=== PATIENT | female | born 1945 | race Caucasian/White ===

== ENCOUNTER 2017-12-26 14:14 | Inpatient (IN) | payer OTHER, MEDICARE ==
[~2017-12-26] VITALS: Ht 152.4 cm; Wt 89.9 kg
[~2017-12-26 14:14] MED LIST: AMLO5TAB96 PO; ASPI81 PO; CIPR500T2 PO; DICY10 PO; FISH300C2 PO; METR-1 PO; PROT40TA PO; TAB-TAB PO; [UNRECOGNIZED DRUG - OTHER] PO
[2017-12-26 14:20] VITALS: BP 129/65; PULSE 87; RESP 20; TEMP 98.7; O2SAT 95
[2017-12-26] MEDS ORDERED: KETOROLAC TROMETHAMINE 30 MG/ML (IVP) VIAL IV PUSH ONE (14:45)
[2017-12-26 15:20] LABS: AUTOMATED NEUTROPHIL # 7.4 TH/MM3 (1.8-7.7); BASOPHIL % 0.4 % (0.0-2.0); EOSINOPHIL % 0.1 % (0.0-4.0); HEMATOCRIT 33.7 % (35.0-46.0); LYMPH % 11.2 % (9.0-44.0); LYMPHOCYTE # 1.1 TH/MM3 (1.0-4.8); MEAN CELL VOLUME 83.7 FL (80.0-100.0); MEAN CORPUSCULAR HEMOGLOBIN 27.3 PG (27.0-34.0); MEAN CORPUSCULAR HGB CONC 32.6 % (32.0-36.0); MEAN PLATELET VOLUME 7.3 FL (7.0-11.0); MONO % 10.5 % (0.0-8.0); NEUT % 77.8 % (16.0-70.0); PLATELET COUNT 404 TH/MM3 (150-450); RED BLOOD COUNT 4.03 MIL/MM3 (4.00-5.30); RED CELL DISTRIBUTION WIDTH 18.3 % (11.6-17.2); WHITE BLOOD COUNT 9.5 TH/MM3 (4.0-11.0)
[2017-12-26 15:49] LABS: ALBUMIN 3.6 GM/DL (3.4-5.0); ALKALINE PHOSPHATASE 73 U/L (45-117); ALT (GPT) 14 U/L (10-53); AST (GOT) 16 U/L (15-37); BICARBONATE 26.5 MEQ/L (21.0-32.0); BLOOD UREA NITROGEN 11 MG/DL (7-18); CALCIUM 8.7 MG/DL (8.5-10.1); CHLORIDE 87 MEQ/L (98-107); CREATININE 0.49 MG/DL (0.50-1.00); GLOMERULAR FILTRATION RATE 124 ML/MIN (>89); GLUCOSE,RANDOM 89 MG/DL (74-106); TOTAL BILIRUBIN ADULT 0.6 MG/DL (0.2-1.0); TOTAL PROTEIN 7.6 GM/DL (6.4-8.2)
[2017-12-26 15:52] LABS: SODIUM (NA) 123 MEQ/L (136-145)
--- NOTE | 2017-12-26 16:02 | RADRPT ---
EXAM DATE/TIME: 12/26/2017 15:07 [facility] COMPARISON: No previous studies available for comparison. INDICATIONS : Chest pain. MEDICAL HISTORY : Chronic obstructive pulmonary disease. Hypertension SURGICAL HISTORY : Hysterectomy. Hernia repair. ENCOUNTER: Initial ACUITY: 1 week PAIN SCORE: 10/10 LOCATION: Bilateral chest FINDINGS: Cardiac silhouette is enlarged. Mild interstitial prominence. No significant focal pleural or parench ymal abnormality. Osseous structures are intact. CONCLUSION: 1. Cardiomegaly with slight positive fluid balance. Lyle Davis MD on December 26, 2017 at 15:59 Board Certified Radiologist. This report was verified electronically.
--- NOTE | 2017-12-26 16:14 | RADRPT ---
EXAM DATE/TIME: 12/26/2017 15:16 [facility] COMPARISON: No previous studies available for comparison. INDICATIONS : Lumbar pain. MEDICAL HISTORY : Chronic obstructive pulmonary disease. Hypertension SURGICAL HISTORY : Hysterectomy. Hernia repair. ENCOUNTER: Initial ACUITY: 1 week PAIN SCORE: 10/10 LOCATION: lumbar FINDINGS: 3 views of the lumbar spine. There is mild levoscoliosis of the lumbar spine centered at L3-4. Mild l oss of vertebral body height at L5. Otherwise, vertebral body heights are intact. Degenerative spondy losis of the lower lumbar spine most prominently at L4-5 and L5-S1 with osteophyte formation and endp late sclerosis. Multilevel facet arthropathy in the lower lumbar spine. Dense atherosclerotic aspirat ions of the abdominal aorta. CONCLUSION: 1. Mild compression deformity of the L5 inferior endplate of unknown chronicity given lack of prior e xams. If patient has significant pain on palpation of the L5 spinous process, consider MRI examinatio n to evaluate for bone marrow edema. 2. Degenerative spondylosis of the lower lumbar spine. Lyle Davis MD on December 26, 2017 at 16:01 Board Certified Radiologist. This report was verified electronically.
--- NOTE | 2017-12-26 16:39 | PD ---
HPI Chief Complaint: Pain: Acute or Chronic Time Seen by Provider: 14:21 Travel History International Travel<30 days: No Contact w/Intl Traveler<30days: No Traveled to known affect area: No History of Present Illness HPI 72-year-old woman who presents to the emergency department complaining of low back pain ongoing for the past 6 or 7 days. She also states she not had a bowel movement for 8 days. Pain is gotten progressively more severe and so she came to the emergency department. She also felt like she is having a COPD exacerbation and she started prednisone and Cipro couple days ago. She has had continuing URI symptoms. States she has had T-spine compression fractures in the past History Past Medical History Narrative Medical COPD HTN Social History Alcohol Use: Yes (2-3 gin per day) Tobacco Use: No (QUIT 11 MTHS AGO TODAY) Allergies-Medications (Allergen,Severity, Reaction): Coded Allergies: acetaminophen (Unverified Allergy, Severe, HEADACHE AND INSOMNIA, 06/23/17) codeine (Unverified Allergy, Severe, HEADACHE AND INSOMNIA, 06/23/17) hydrocodone (Unverified Allergy, Severe, HEADACHE AND INSOMNIA, 06/23/17) Reported Meds & Prescriptions Reported Meds & Active Scripts Active Protonix (Pantoprazole Sodium) 40 Mg Tabdr 40 Mg PO DAILY Flagyl (Metronidazole) 500 Mg Tab 500 Mg PO TID Cipro (Ciprofloxacin) 500 Mg Tab 500 Mg PO BID Bentyl (Dicyclomine HCl) 10 Mg Cap 10 Mg PO Q6HPRN Reported Aspirin 81 Mg Tab 81 Mg PO HS Multivitamin (Multivitamins) 1 Tab Tab 1 Tab PO DAILY Fish Oil 300 Mg Cap 0 PO BID [Flac Seed Oil] 0 PO BID Norvasc (Amlodipine Besylate) 5 Mg Tab 5 Mg PO BID Review of Systems Except as stated in HPI: all other systems reviewed are Neg Physical Exam Narrative GENERAL: 71-year-old woman, pain with any movement of the back, SKIN: Focused skin assessment warm/dry. HEAD: Atraumatic. Normocephalic. EYES: Pupils equal and round. No scleral icterus. No injection or drainage. ENT: No nasal bleeding or discharge. Mucous membranes pink and moist. NECK: Trachea midline. No JVD. CARDIOVASCULAR: Regular rate and rhythm. No murmur appreciated. RESPIRATORY: No respiratory distress. Coarse breath sounds. GASTROINTESTINAL: Abdomen soft, non-tender, nondistended. Hepatic and splenic margins not palpable. MUSCULOSKELETAL: No obvious deformities. No clubbing. No cyanosis. No edema. NEUROLOGICAL: Awake and alert. No obvious cranial nerve deficits. Motor grossly within normal limits. Normal speech. PSYCHIATRIC: Appropriate mood and affect; insight and judgment normal. Data Data Last Documented VS Vital Signs Date Time Temp Pulse Resp B/P (MAP) Pulse Ox O2 Delivery O2 Flow Rate FiO2 12/26/17 14:20 98.7 87 20 129/65 (86) 95 Orders Orders Chest, Pa & Lat (12/26/17 ) Spine, Lumbar - Ltd (Ap & Lat) (12/26/17 ) Complete Blood Count With Diff (12/26/17 14:35) Comprehensive Metabolic Panel (12/26/17 14:35) Iv Access Insert/Monitor (12/26/17 14:35) Ketorolac Inj (Toradol Inj) (12/26/17 14:45) Sodium Chlor 0.9% 1000 Ml Inj (Ns 1000 M (12/26/17 16:45) Albuterol-Ipratropium Neb (Duoneb Neb) (12/26/17 16:45) Morphine Inj (Morphine Inj) (12/26/17 16:45) Vital Signs (Adult) Q4H (12/26/17 16:52) Activity Bed Rest (12/26/17 16:52) Diet Heart Healthy (12/26/17 Dinner) Basic Metabolic Panel (Bmp) (12/27/17 06:00) Complete Blood Count With Diff (12/27/17 06:00) Scd Bilateral/Knee High JULY.QSHIFT (12/26/17 16:52) Sodium Chlor 0.9% 1000 Ml Inj (Ns 1000 M (12/26/17 17:00) Consult Neurosurgery (12/26/17 ) Basic Metabolic Panel (Bmp) (12/27/17 02:00) Admit To Inpatient (12/26/17 ) Admit Order (Ed Use Only) (12/26/17 ) Labs Laboratory Tests Test 12/26/17 14:45 White Blood Count 9.5 TH/MM3 Red Blood Count 4.03 MIL/MM3 Hemoglobin 11.0 GM/DL Hematocrit 33.7 % Mean Corpuscular Volume 83.7 FL Mean Corpuscular Hemoglobin 27.3 PG Mean Corpuscular Hemoglobin Concent 32.6 % Red Cell Distribution Width 18.3 % Platelet Count 404 TH/MM3 Mean Platelet Volume 7.3 FL Neutrophils (%) (Auto) 77.8 % Lymphocytes (%) (Auto) 11.2 % Monocytes (%) (Auto) 10.5 % Eosinophils (%) (Auto) 0.1 % Basophils (%) (Auto) 0.4 % Neutrophils # (Auto) 7.4 TH/MM3 Lymphocytes # (Auto) 1.1 TH/MM3 Monocytes # (Auto) 1.0 TH/MM3 Eosinophils # (Auto) 0.0 TH/MM3 Basophils # (Auto) 0.0 TH/MM3 CBC Comment DIFF FINAL Differential Comment Blood Urea Nitrogen 11 MG/DL Creatinine 0.49 MG/DL Random Glucose 89 MG/DL Total Protein 7.6 GM/DL Albumin 3.6 GM/DL Calcium Level 8.7 MG/DL Alkaline Phosphatase 73 U/L Aspartate Amino Transf (AST/SGOT) 16 U/L Alanine Aminotransferase (ALT/SGPT) 14 U/L Total Bilirubin 0.6 MG/DL Sodium Level 123 MEQ/L Potassium Level 3.7 MEQ/L Chloride Level 87 MEQ/L Carbon Dioxide Level 26.5 MEQ/L Anion Gap 10 MEQ/L Estimat Glomerular Filtration Rate 124 ML/MIN [facility] Medical Decision Making Medical Screen Exam Complete: Yes Emergency Medical Condition: Yes Interpretation(s) LABS: CBC remarkable for mild anemia. CMP remarkable for sodium 123 Chest x-ray: Cardiac silhouette is enlarged. Mild interstitial prominence. L-spine x-ray: Mild compression deformity of the L5 inferior endplate of unknown chronicity. Differential Diagnosis Spine fracture, compression fracture, UTI, probably, other Narrative Course Medical decision making INITIAL pleasant 72 odometer presents to the emergency department worsening low back pain. Appears to have an L1 compression fracture, fairly minor. Also found to have severe hyponatremia. Unclear if this is related to her fall. She has had trouble with her mobility and getting around since the back pain is started this may be related. She does not take any diuretics. Diagnosis Primary Impression: Hyponatremia Additional Impression: Compression fracture of lumbar vertebra Admitting Information Admitting Physician Requests: Admit Pete Martínez MD Dec 26, 2017 16:39
[2017-12-26] MEDS ORDERED: SODIUM CHLOR 0.9% 1000 ML INJ 1,000 ML IV ONE (16:45)
[2017-12-26] MEDS ORDERED: MORPHINE SULFATE 4 MG/ML INJ IV PUSH ONE (16:45)
[2017-12-26] MEDS ORDERED: RESP: ALBUTEROL 2.5 MG/IPRATROPIUM 0.5 MG NEB (SCH) NEB ONE (16:45)
[2017-12-26] MEDS: SODIUM CHLOR 0.9% 1000 ML INJ 1,000 ML IV SCH (17:35)
[2017-12-26 18:23] VITALS: BP 144/65; PULSE 78; O2SAT 95
--- NOTE | 2017-12-26 18:29 | HHI.NSPN ---
History Chief Complaint: back pain Interval History History of upper lumbar pain for 1 week. No radiation. History of T spine fractures Exam Results Vital Signs Date Time Temp Pulse Resp B/P (MAP) Pulse Ox O2 Delivery O2 Flow Rate FiO2 12/26/17 18:23 78 144/65 (91) 95 Nasal Cannula 2.00 12/26/17 14:20 98.7 20 Medical Decision Making Impression and Plan Imp: Upper lumbar pain L5 fracture appears old and does not correlate with pain Rec: Consider CT of T &LS spine. May need MRI Review completed consult Hreve Encinas MD Dec 26, 2017 18:28
[2017-12-26] MEDS ORDERED: SYMB80AE INH (18:33)
[2017-12-26] MEDS ORDERED: AMLO5TAB2 PO (18:33)
--- NOTE | 2017-12-26 18:55 | HHI.HP ---
[facility] Jose Arellano MD (Paul) Admission Diagnosis Hyponatremia, L-spine compression fracture Diagnoses: (1) Lumbar compression fracture Diagnosis: Principal (2) Intractable pain Diagnosis: Principal (3) COPD (chronic obstructive pulmonary disease) Diagnosis: Principal (4) Constipation Diagnosis: Principal (5) Hyponatremia Diagnosis: Principal (6) Alcohol use Diagnosis: Principal (7) Tobacco abuse Diagnosis: Principal Travel History International Travel<30 Days: No Contact w/Intl Traveler <30 Da: No Traveled to Known Affected Are: No History of Present Illness This is a 72-year-old female with a PMH of HTN, COPD and h/o Tobacco Abuse who presented to the ER w/ various complaints including back pain, SOB/wheezing and constipation. States back pain has been ongoing for approx 1wk, denies injury/ trauma. Reports h/o T-Spine Fx several years ago after lifting a patient while working as a [employer]. Has been taking Ibuprofen at home with no relief. Reports pain is severe, constant, sharp, 10/10, non-radiating. SOB started 4 days ago, thought she was having a COPD exacerbation so she started taking Prednisone and Cipro that she had at home, has been on treatment since (2 days ago). SOB is moderate, associated w/ wheezing, no cough. Denies fever, chills. Also reports constipation x8 days. Has taken multiple over the counter medications w / minimal relief, today used a suppository and had small BM. Denies abdominal pain, nausea, vomiting or diarrhea. On arrival, BP 144/65, HR 78, O2 sat 95% on 2L. CBC essentially unremarkable, except for hemoglobin 11, previously 16.3 on 02/09/13. Na 123. K+ normal. CXR with cardiomegaly with slight positive fluid balance. Lumbar Spine x-ray with mild compression deformity of L5 of unknown chronicity. Dr. Encinas consulted by ER physician, recommendation for CT T/L-Spine. Review of Systems Except as stated in HPI: all other systems reviewed are Neg ROS: 14 point review of systems otherwise negative. Past Family Social History Past Medical History PMH: HTN, COPD and h/o Tobacco Abuse Past Surgical History PAST SURGICAL HISTORY: Hiatal Hernia, Hysterectomy, Sinus Surgery Allergies: Coded Allergies: acetaminophen (Unverified Allergy, Severe, HEADACHE AND INSOMNIA, 06/23/17) codeine (Unverified Allergy, Severe, HEADACHE AND INSOMNIA, 06/23/17) hydrocodone (Unverified Allergy, Severe, HEADACHE AND INSOMNIA, 06/23/17) Family History PAST FAMILY HISTORY: Reviewed, positive for CAD. Social History PAST SOCIAL HISTORY: Drinks 2-3 gins per day. H/o tobacco abuse, states she quit almost 1yr ago. Denies drugs. Physical Exam Vital Signs Vital Signs Date Time Temp Pulse Resp B/P (MAP) Pulse Ox O2 Delivery O2 Flow Rate FiO2 12/26/17 18:23 78 144/65 (91) 95 Nasal Cannula 2.00 12/26/17 14:20 98.7 87 20 129/65 (86) 95 Physical Exam PE: GENERAL: Elderly white female in moderate distress secondary to pain. Room smells strongly of tobacco. HEENT: PERRLA, EOMI. No scleral icterus or conjunctival pallor. No lid lag or facial droop. CARDIOVASCULAR: Regular rate and rhythm. No obvious murmurs to auscultation. No chest tenderness to palpation. RESPIRATORY: No obvious rhonchi. Occasional wheezing, intermittent cough. Clear to auscultation. Breath sounds equal bilaterally, but difficult to auscultate due to back pain. GASTROINTESTINAL: Abdomen distended, soft, no tenderness. BS normal. MUSCULOSKELETAL: Extremities without clubbing, cyanosis, or edema. No obvious deformities. T/L-spine tenderness to palpation. NEUROLOGICAL: Awake, alert and oriented x4. No focal neurologic deficits. Moving both upper and lower extremities spontaneously. Laboratory Laboratory Tests Test 12/26/17 14:45 White Blood Count 9.5 Red Blood Count 4.03 Hemoglobin 11.0 Hematocrit 33.7 Mean Corpuscular Volume 83.7 Mean Corpuscular Hemoglobin 27.3 Mean Corpuscular Hemoglobin Concent 32.6 Red Cell Distribution Width 18.3 Platelet Count 404 Mean Platelet Volume 7.3 Neutrophils (%) (Auto) 77.8 Lymphocytes (%) (Auto) 11.2 Monocytes (%) (Auto) 10.5 Eosinophils (%) (Auto) 0.1 Basophils (%) (Auto) 0.4 Neutrophils # (Auto) 7.4 Lymphocytes # (Auto) 1.1 Monocytes # (Auto) 1.0 Eosinophils # (Auto) 0.0 Basophils # (Auto) 0.0 CBC Comment DIFF FINAL Differential Comment Blood Urea Nitrogen 11 Creatinine 0.49 Random Glucose 89 Total Protein 7.6 Albumin 3.6 Calcium Level 8.7 Alkaline Phosphatase 73 Aspartate Amino Transf (AST/SGOT) 16 Alanine Aminotransferase (ALT/SGPT) 14 Total Bilirubin 0.6 Sodium Level 123 Potassium Level 3.7 Chloride Level 87 Carbon Dioxide Level 26.5 Anion Gap 10 Estimat Glomerular Filtration Rate 124 Result Diagram: 12/26/17 1445 12/26/17 1445 Caprini VTE Risk Assessment Caprini VTE Risk Assessment: No/Low Risk (score <= 1) Caprini Risk Assessment Model Point Value = 1 Point Value = 2 Point Value = 3 Point Value = 5 Age 41-60 Minor surgery BMI > 25 kg/m2 Swollen legs Varicose veins or History of unexplained or recurrent spontaneous Oral contraceptives or hormone replacement Sepsis (< 1 month) Serious lung disease, including pneumonia (< 1 month) Abnormal pulmonary function Acute myocardial infarction Congestive heart failure (< 1 month) History of inflammatory bowel disease Medical patient at bed rest Age 61-74 Arthroscopic surgery Major open surgery (> 45 min) Laparoscopic surgery (> 45 min) Malignancy Confined to bed (> 72 hours) Immobilizing plaster cast Central venous access Age >= 75 History of VTE Family history of VTE Factor V Leiden Prothrombin [id number] Lupus anticoagulant Anticardiolipin antibodies Elevated serum homocysteine Heparin-induced thrombocytopenia Other congenital or acquired thrombophilia Stroke (< 1 month) Elective arthroplasty Hip, pelvis, or leg fracture Acute spinal cord injury (< 1 month) Prophylaxis Regimen Total Risk Factor Score Risk Level Prophylaxis Regimen 0-1 Low Early ambulation 2 Moderate Order ONE of the following: *Sequential Compression Device (SCD) *Heparin 5000 units SQ BID 3-4 Higher Order ONE of the following medications: *Heparin 5000 units SQ TID *Enoxaparin/Lovenox 40 mg SQ daily (WT < 150 kg, CrCl > 30 mL/min) *Enoxaparin/Lovenox 30 mg SQ daily (WT < 150 kg, CrCl > 10-29 mL/min) *Enoxaparin/Lovenox 30 mg SQ BID (WT < 150 kg, CrCl > 30 mL/min) AND/OR *Sequential Compression Device (SCD) 5 or more Highest Order ONE of the following medications: *Heparin 5000 units SQ TID (Preferred with Epidurals) *Enoxaparin/Lovenox 40 mg SQ daily (WT < 150 kg, CrCl > 30 mL/min) *Enoxaparin/Lovenox 30 mg SQ daily (WT < 150 kg, CrCl > 10-29 mL/min) *Enoxaparin/Lovenox 30 mg SQ BID (WT < 150 kg, CrCl > 30 mL/min) AND *Sequential Compression Device (SCD) Assessment and Plan Problem List: (1) Intractable pain ICD Code: R52 - Pain, unspecified (2) Lumbar compression fracture ICD Code: S32.000A - Wedge compression fracture of unspecified lumbar vertebra , initial encounter for closed fracture (3) COPD (chronic obstructive pulmonary disease) ICD Code: J44.9 - Chronic obstructive pulmonary disease, unspecified (4) Constipation ICD Code: K59.00 - Constipation, unspecified (5) Hyponatremia ICD Code: E87.1 - Hypo-osmolality and hyponatremia Status: Acute (6) Alcohol use ICD Code: Z78.9 - Other specified health status (7) Tobacco abuse ICD Code: Z72.0 - Tobacco use Assessment and Plan A/P: 1. Intractable Back Pain: c/o acute onset back pain, no injury/trauma, reports multiple allergies to Tylenol, Codeine and Hydrocodone. Received Morphine and Toradol in ER w/ some relief. Continue Morphine prn, add Valium prn for muscle spasm. Antiemetics as needed. 2. Lumbar CxFx: c/o acute, severe back pain. H/o Thoracic CxFx years ago from previous trauma. L-Spine X-ray w/ mild compression deformity of L5 inferior endplate of unknown chronicity, images reviewed by me. Dr. Encinas consulted by ER physician, compression fracture does not correlate with area of pain, however recommendation for further imaging. Will obtain CT T/L-Spine. PT for eval/tx. Analgesics/antiemetics as above. 3. COPD: Chronic Respiratory Failure, w/ Acute Exacerbation. Moderate. + wheezing/SOB on exam. Has been on Prednisone/Cipro x2 days. CXR w/ no acute infiltrate, images reviewed by me. Solu-Medrol, DuoNeb, Symbicort, Mucinex. 4. Constipation: no BM x1 wk, has been using OTC medications/suppository w/ minimal relief, small BM today. No nausea/vomiting or diarrhea, no abdominal pain. Check Abd X-ray to eval for possible obstruction. Start Constipation Protocol 5. Hyponatremia: Na 123, IVF for hydration, check U/a to eval for possible UTI. Repeat labs for trend. 6. Alcohol Use: Drinks 2-3 gins/day, start CIWA protocol for possible withdrawal symptoms, Seizure Precautions, MVT/Thiamine/Folate replacement. 7. Tobacco Abuse: h/o tobacco, reports quit in the past. NicoDerm prn if needed. 8. DVT Prophylaxis: SCD/Teds. 9. Social work for d/c planning as needed. 10. Case discussed w/ ER physician at length, labs/records/imaging/consult notes evaluated by me. Physician Certification 2 Midnight Certification Type: Admission for Inpatient Services Order for Inpatient Services The services are ordered in accordance with Medicare regulations or non- Medicare payer requirements, as applicable. In the case of services not specified as inpatient-only, they are appropriately provided as inpatient services in accordance with the 2-midnight benchmark. Estimated LOS (days): 2 days is the estimated time the patient will need to remain in the hospital, assuming treatment plan goals are met and no additional complications. Post-Hospital Plan: Not yet determined Edwige Moreno MD Dec 26, 2017 18:55
[2017-12-26] MEDS ORDERED: MORPHINE SULFATE 2 MG/ML INJ IV PUSH PRN ×2 (19:00)
[2017-12-26] MEDS ORDERED: BISACODYL 10 MG SUPP RECTAL PRN (19:00)
[2017-12-26] MEDS: DIAZEPAM 10 MG TAB PO PRN (19:12)
--- NOTE | 2017-12-26 19:14 | MB ---
cc: ELISABET DIAZ DATE OF CONSULTATION 12/26/17 CHIEF COMPLAINT Back pain. HISTORY OF PRESENT ILLNESS This is a 72 year old female patient who presents to the emergency room complaining of upper lumbar pain. It has been present for approximately one week. The pain apparently started insidiously and has constantly progressed and become severe. There is no radiation of pain to the lower extremities. She denies any neck pain. She also has some increased difficulty breathing. She gives history of fractures of T5 and T10 in the past. PAST MEDICAL HISTORY 1. Hypertension 2. Chronic obstructive pulmonary disease ALLERGIES CODEINE HYDROCODONE SOCIAL HISTORY She uses alcohol, about 2-3 gins per day. Her tobacco use stopped approximately 11 months, but she smoked for approximately 50 years. MEDICATIONS Presently, 1. Protonix 2. Flagyl 3. Cipro 4. Bentyl 5. Aspirin 6. Multivitamins 7. Norvasc. REVIEW OF SYSTEMS Pertaining to the above problems. PHYSICAL EXAMINATION VITAL SIGNS: Blood pressure 129/65, temperature 98.7, pulse 87, pulse ox 95%. GENERAL: Well-developed female on oxygen in moderate distress. HEENT: Unremarkable NECK: Supple with good carotid pulses bilaterally. CHEST: Symmetric. Lungs are clear. HEART: Regular rhythm with normal heart sounds. ABDOMEN: Soft and nontender. EXTREMITIES: Clear. NEUROLOGIC: The patient is alert and awake. She follows commands well. Speech is fluent. She is oriented times three. Affect is normal. Cranial nerves II-XII are intact. Motor exam is 5+/5, although she tends to give away somewhat in the left upper extremity. Sensory exam is intact to touch. Deep tendon reflexes are 1+ at the biceps and triceps, 1+ at the knee jerks and trace at the ankle jerks. She has fine Babinski bilaterally. IMAGING STUDIES Review of lumbar spine x-rays show what appears to be deformity of the inferior endplate of L5 which appears to be chronic. There is no displacement of the vertebrae. IMPRESSION Upper lumbar pain, the L5 deformity does not correlate with the patient's present pain. Would recommend that she have CT of the thoracic and lumbar spine. May need to also consider an MRI of these areas. MD ESME Barron/SA Walton: 12/26/2017/6:29 PM /6:57 PM
[2017-12-26] MEDS ORDERED: FLUMAZENIL 0.5 MG/5 ML VIAL IV PUSH PRN (19:30)
[2017-12-26] MEDS ORDERED: HALOPERIDOL LACTATE 5 MG/ML AMP IM PRN (19:30)
[2017-12-26] MEDS ORDERED: LORazepam 2 MG/ML VIAL IV PUSH PRN ×4 (19:30)
[2017-12-26] MEDS ORDERED: LORazepam 1 MG TAB PO PRN (19:30)
[2017-12-26] MEDS ORDERED: LORazepam 2 MG TAB PO PRN (19:30)
--- NOTE | 2017-12-26 19:44 | RADRPT ---
EXAM DATE/TIME: 12/26/2017 19:15 [facility] COMPARISON: No previous studies available for comparison. INDICATIONS : Possible obstruction. MEDICAL HISTORY : Chronic obstructive pulmonary disease. Hypertension SURGICAL HISTORY : Hysterectomy. Hernia repair. ENCOUNTER: Initial ACUITY: 1 week PAIN SCORE: 0/10 LOCATION: abdomen. FINDINGS: Supine and upright views of the abdomen demonstrate mild diffuse gaseous distention of the small martha l and colon with small bowel measuring up to 3.1 cm. No transition point is present. No air-fluid lev els or free intraperitoneal air is identified on the upright image. No organomegaly or concerning verna cifications are seen. Bones demonstrate no acute finding. There is severe vascular calcification. CONCLUSION: 1. Mild diffuse gaseous distention of the small and large bowel. The pattern is not suggestive of obs truction but could represent ileus. 2. Severe atherosclerotic disease. Juaquin Newell MD on December 26, 2017 at 19:41 Board Certified Radiologist. This report was verified electronically.
[2017-12-26 19:59] VITALS: O2SAT 95
[2017-12-26 20:00] VITALS: BP 146/75; PULSE 73; RESP 15; TEMP 97.2; O2SAT 92
--- NOTE | 2017-12-26 20:01 | RADRPT ---
EXAM DATE/TIME: 12/26/2017 19:28 [facility] COMPARISON: No previous studies available for comparison. INDICATIONS : Back pain for six days. RADIATION DOSE: 26.44 CTDIvol (mGy) ; Combined studies MEDICAL HISTORY : Hypertension. SURGICAL HISTORY : Hysterectomy. Appendectomy. ENCOUNTER: Initial ACUITY: 4 - 6 days PAIN SCALE: 7/10 LOCATION: Bilateral upper back TECHNIQUE: Volumetric scanning of the thoracic spine was performed. Multiplanar reconstructions in the sagittal , coronal and oblique axial planes were performed. Using automated exposure control and adjustment o f the mA and/or kV according to patient size, radiation dose was kept as low as reasonably achievable to obtain optimal diagnostic quality images. DICOM format image data is available electronically f or review and comparison. FINDINGS: There is a compression deformity of the T5 vertebral body with approximately 20% height loss centrall y. At the T8 level there is a central height loss at the superior and inferior endplates with approxi mately 50% height loss centrally. At this level there is a potential fracture line along the left asp ect of the vertebral body indicating that it is acute. No other definite fracture is seen. There is a prominent Schmorl's node at the inferior endplate of T10. T1-T2: Normal. T2-T3: The thecal sac has a normal diameter. No evidence of disc bulge or protrusion. T3-T4: The thecal sac has a normal diameter. No evidence of disc bulge or protrusion. T4-T5: The thecal sac has a normal diameter. No evidence of disc bulge or protrusion. T5-T6: The thecal sac has a normal diameter. No evidence of disc bulge or protrusion. T6-T7: The thecal sac has a normal diameter. No evidence of disc bulge or protrusion. T7-T8: The thecal sac has a normal diameter. No evidence of disc bulge or protrusion. T8-T9: The thecal sac has a normal diameter. No evidence of disc bulge or protrusion. T9-T10: The thecal sac has a normal diameter. No evidence of disc bulge or protrusion. T10-T11: The thecal sac has a normal diameter. No evidence of disc bulge or protrusion. T11-T12: The thecal sac has a normal diameter. No evidence of disc bulge or protrusion. T12-L1: The thecal sac has a normal diameter. No evidence of disc bulge or protrusion. The visualized surrounding structures demonstrate no acute finding. There is moderate to severe ather osclerotic disease of the aorta. CONCLUSION: 1. Suspected acute compression fracture at the superior endplate of T8. There is a subtle fracture li ne visualized and there is approximately 50% height loss centrally. 2. There is a mild height loss associated with the T5 vertebral body but no fracture line is identifi ed suggesting that it may be chronic. Juaquin Newell MD on December 26, 2017 at 19:55 Board Certified Radiologist. This report was verified electronically.
--- NOTE | 2017-12-26 20:04 | RADRPT ---
EXAM DATE/TIME: 12/26/2017 19:31 [facility] COMPARISON: No previous studies available for comparison. INDICATIONS : Back pain for six days. RADIATION DOSE: 26.44 CTDIvol (mGy) ; Combined studies MEDICAL HISTORY : Hypertension. SURGICAL HISTORY : Hysterectomy. Appendectomy. ENCOUNTER: Initial ACUITY: 4 - 6 days PAIN SCALE: 7/10 LOCATION: Bilateral lower back TECHNIQUE: Volumetric scanning of the lumbar spine was performed. Multiplanar reconstructions in the sagittal, coronal and oblique axial planes were performed. Using automated exposure control and adjustment of the mA and/or kV according to patient size, radiation dose was kept as low as reasonably achievable t o obtain optimal diagnostic quality images. DICOM format image data is available electronically for review and comparison. FINDINGS: VERTEBRAE: Normal vertebral body height. No fracture or compression deformity is identified. ALIGNMENT: No anterolisthesis or retrolisthesis. T12-L1: The thecal sac has a normal diameter. No evidence of disc bulge or protrusion. The neural foramina are patent bilaterally. L1-L2: The thecal sac has a normal diameter. No evidence of disc bulge or protrusion. The neural foramina are patent bilaterally. L2-L3: There is a mild diffuse disc bulge but no significant spinal canal stenosis or neural foraminal narro wing is identified. L3-L4: There is a mild diffuse disc bulge with mild facet hypertrophy. No significant spinal canal stenosis is present. There is mild neural foraminal narrowing bilaterally. L4-L5: There is moderate facet hypertrophy with a diffuse disc bulge. No significant spinal canal stenosis i s present. There is mild neural foraminal narrowing bilaterally. L5-S1: There is a mild diffuse disc bulge and mild facet hypertrophy. No spinal canal stenosis or significan t neural foraminal narrowing is present. There is severe atherosclerotic disease of the aorta. CONCLUSION: 1. No acute lumbar spine abnormality is identified. No fracture is seen. No significant spinal canal stenosis is identified. There mild degenerative changes, as above. 2. Severe atherosclerotic disease. Juaquin Newell MD on December 26, 2017 at 20:00 Board Certified Radiologist. This report was verified electronically.
[2017-12-26] MEDS: BUDESONIDE-FORMOTEROL 160/4.5 MCG INHALER INH SCH (21:00)
[2017-12-26] MEDS: SODIUM CHLORIDE 0.9% FLUSH 10 ML FLUSH IV FLUSH SCH (21:00)
[2017-12-26] MEDS: SENNOSIDES 8.6 MG TAB PO PRN (21:12)
[2017-12-26] MEDS: BUDESONIDE-FORMOTEROL 80/4.5 MCG INHALER INH SCH (21:13)
[2017-12-26] MEDS: DOCUSATE SODIUM 50 MG/SENNA 8.6 MG TAB PO SCH (21:13)
[2017-12-26] MEDS: methylPREDNISolone SOD SUCC 40 MG/1 ML VIAL IV PUSH SCH (23:22)
[2017-12-26] MEDS: MORPHINE SULFATE 4 MG/ML INJ IV PUSH PRN (23:23)
[2017-12-26] MEDS: ONDANSETRON HCL 4 MG/2 ML VIAL IVP PRN (23:23)
[2017-12-26] MEDS: RESP: ALBUTEROL 2.5 MG/IPRATROPIUM 0.5 MG NEB (PRN) NEB (23:36)
[2017-12-26 23:43] VITALS: O2SAT 93
[2017-12-27] VITALS (7 sets, daily range): BP systolic 126–142; BP diastolic 58–75; PULSE 73–94; RESP 15–19; TEMP 95.4–97.3; O2SAT 90–93
[2017-12-27 00:59] LABS: AMORPHOUS SEDIMENT, URINE RARE; BACTERIA, URINE MANY /hpf; BLOOD, URINE NEG (NEG); GLUCOSE,URINE NEG (NEG); HYALINE CAST, URINE 54 /lpf (RARE); KETONE, URINE NEG (NEG); MUCUS URINE FEW /lpf (OCC); NITRITE,URINE NEG (NEG); PH, URINE 5.5 (5.0-8.5); SQUAMOUS EPITHELIAL CELL URINE 5 /hpf (0-5); URINE COLOR YELLOW (YELLW/STRAW); URINE LEUKOCYTE ESTERASE LARGE (NEG)
[2017-12-27 01:01] LABS: BILIRUBIN, URINE NEG (NEG)
[2017-12-27 02:34] LABS: BICARBONATE 26.3 MEQ/L (21.0-32.0); CALCIUM 8.1 MG/DL (8.5-10.1); CREATININE 0.66 MG/DL (0.50-1.00)
[2017-12-27] MEDS: MORPHINE SULFATE 4 MG/ML INJ IV PUSH PRN ×3 (03:40→22:06)
[2017-12-27] MEDS: SODIUM CHLOR 0.9% 1000 ML INJ 1,000 ML IV SCH ×5 (03:40→23:55)
[2017-12-27] MEDS: RESP: ALBUTEROL 2.5 MG/IPRATROPIUM 0.5 MG NEB (PRN) NEB ×2 (04:56→18:47)
[2017-12-27] MEDS: methylPREDNISolone SOD SUCC 40 MG/1 ML VIAL IV PUSH SCH ×4 (05:46→23:53)
[2017-12-27 08:40] LABS: AUTOMATED NEUTROPHIL # 7.9 TH/MM3 (1.8-7.7); HEMATOCRIT 30.9 % (35.0-46.0); HEMOGLOBIN 9.7 GM/DL (11.6-15.3); LYMPH % 3.3 % (9.0-44.0); LYMPHOCYTE # 0.3 TH/MM3 (1.0-4.8); MEAN CORPUSCULAR HEMOGLOBIN 26.8 PG (27.0-34.0); MEAN CORPUSCULAR HGB CONC 31.5 % (32.0-36.0); MEAN PLATELET VOLUME 7.6 FL (7.0-11.0); MONO % 1.3 % (0.0-8.0); MONOCYTE # 0.1 TH/MM3 (0-0.9); NEUT % 95.4 % (16.0-70.0); PLATELET COUNT 346 TH/MM3 (150-450); RED BLOOD COUNT 3.63 MIL/MM3 (4.00-5.30); RED CELL DISTRIBUTION WIDTH 18.5 % (11.6-17.2); WHITE BLOOD COUNT 8.3 TH/MM3 (4.0-11.0)
[2017-12-27 09:00] LABS: ALBUMIN 3.3 GM/DL (3.4-5.0); ALKALINE PHOSPHATASE 67 U/L (45-117); ALT (GPT) 15 U/L (10-53); AST (GOT) 19 U/L (15-37); BICARBONATE 25.6 MEQ/L (21.0-32.0); BLOOD UREA NITROGEN 14 MG/DL (7-18); CALCIUM 8.5 MG/DL (8.5-10.1); CHLORIDE 90 MEQ/L (98-107); CREATININE 0.55 MG/DL (0.50-1.00); GLOMERULAR FILTRATION RATE 108 ML/MIN (>89); GLUCOSE,RANDOM 119 MG/DL (74-106); TOTAL BILIRUBIN ADULT 0.4 MG/DL (0.2-1.0); TOTAL PROTEIN 7.1 GM/DL (6.4-8.2)
[2017-12-27] MEDS: BUDESONIDE-FORMOTEROL 160/4.5 MCG INHALER INH SCH (09:00)
[2017-12-27 09:08] LABS: SODIUM (NA) 124 MEQ/L (136-145)
[2017-12-27] MEDS: FOLIC ACID 1 MG TAB PO SCH (09:16)
[2017-12-27] MEDS: amLODIPine BESYLATE 5 MG TAB PO SCH (09:16)
[2017-12-27] MEDS: MULTIVITAMINS/MINERALS THERAPEUTIC TAB PO SCH (09:16)
[2017-12-27] MEDS: THIAMINE HCL 100 MG TAB PO SCH (09:16)
[2017-12-27] MEDS: DOCUSATE SODIUM 50 MG/SENNA 8.6 MG TAB PO SCH ×2 (09:16→20:11)
[2017-12-27] MEDS: SODIUM CHLORIDE 0.9% FLUSH 10 ML FLUSH IV FLUSH SCH ×2 (09:17→20:11)
[2017-12-27] MEDS: BUDESONIDE-FORMOTEROL 80/4.5 MCG INHALER INH SCH ×2 (09:17→20:12)
[2017-12-27] MEDS ORDERED: INFLUENZA VIRUS VACCINE (QUADRIVALENT) 0.5 ML SYR IM ONE (10:00)
[2017-12-27] MEDS: CALCIUM CARBONATE 500 MG CHEWABLE TAB CHEW PRN ×3 (10:10→20:16)
[2017-12-27] MEDS: MORPHINE SULFATE 2 MG/ML INJ IV PUSH PRN ×2 (10:11→15:02)
--- NOTE | 2017-12-27 11:43 | HHI.PR ---
Subjective Remarks Follow up with Intractable back pain/Hyponatremia/ 12/27/17-patient seen and examined, back pain improving, Alert and oriented x 3. Na still low Objective Vitals Vital Signs Date Time Temp Pulse Resp B/P (MAP) Pulse Ox O2 Delivery O2 Flow Rate FiO2 12/27/17 08:00 95.4 89 19 131/73 (92) 92 12/27/17 04:00 96.8 73 15 126/61 (82) 90 12/27/17 00:00 97.3 76 15 129/58 (81) 93 12/26/17 23:43 93 Nasal Cannula 5.00 12/26/17 20:00 97.2 73 15 146/75 (98) 92 12/26/17 19:59 95 Nasal Cannula 2.00 12/26/17 18:23 78 144/65 (91) 95 Nasal Cannula 2.00 12/26/17 14:20 98.7 87 20 129/65 (86) 95 I/O 12/26/17 12/26/17 12/26/17 12/27/17 12/27/17 12/27/17 07:00 15:00 23:00 07:00 15:00 23:00 Intake Total 700 ml 1337 ml Balance 700 ml 1337 ml Intake Oral 700 ml 100 ml IV Total 1237 ml # Voids 1 5 # Bowel Movements 0 Result Diagram: 12/27/17 0655 12/27/17 0655 Imaging Last Impressions Thoracic Spine CT 12/26/17 0000 Signed Impressions: Service Date/Time: Tuesday, December 26, 2017 19:28 - CONCLUSION: 1. Suspected acute compression fracture at the superior endplate of T8. There is a subtle fracture line visualized and there is approximately 50%% height loss centrally. 2. There is a mild height loss associated with the T5 vertebral body but no fracture line is identified suggesting that it may be chronic. Juaquin Newell MD Lumbar Spine X-Ray 12/26/17 0000 Signed Impressions: Service Date/Time: Tuesday, December 26, 2017 15:16 - CONCLUSION: 1. Mild compression deformity of the L5 inferior endplate of unknown chronicity given lack of prior exams. If patient has significant pain on palpation of the L5 spinous process, consider MRI examination to evaluate for bone marrow edema. 2. Degenerative spondylosis of the lower lumbar spine. Lyle Davis MD Lumbar Spine CT 12/26/17 0000 Signed Impressions: Service Date/Time: Tuesday, December 26, 2017 19:31 - CONCLUSION: 1. No acute lumbar spine abnormality is identified. No fracture is seen. No significant spinal canal stenosis is identified. There mild degenerative changes, as above. 2. Severe atherosclerotic disease. Juaquin Newell MD Chest X-Ray 12/26/17 0000 Signed Impressions: Service Date/Time: Tuesday, December 26, 2017 15:07 - CONCLUSION: 1. Cardiomegaly with slight positive fluid balance. Lyle Davis MD Abdomen X-Ray 12/26/17 0000 Signed Impressions: Service Date/Time: Tuesday, December 26, 2017 19:15 - CONCLUSION: 1. Mild diffuse gaseous distention of the small and large bowel. The pattern is not suggestive of obstruction but could represent ileus. 2. Severe atherosclerotic disease. Juaquin Newell MD Objective Remarks GENERAL: NAD SKIN: Warm and dry. HEAD: Normocephalic. EYES: No scleral icterus. No injection or drainage. NECK: Supple, trachea midline. No JVD or lymphadenopathy. CARDIOVASCULAR: Regular rate and rhythm without murmurs, gallops, or rubs. RESPIRATORY: Breath sounds equal bilaterally. No accessory muscle use. GASTROINTESTINAL: Abdomen soft, non-tender, nondistended. MUSCULOSKELETAL: No cyanosis, or edema. BACK: tender without obvious deformity. No CVA tenderness. A/P Problem List: (1) Intractable pain ICD Code: R52 - Pain, unspecified (2) Lumbar compression fracture ICD Code: S32.000A - Wedge compression fracture of unspecified lumbar vertebra , initial encounter for closed fracture (3) COPD (chronic obstructive pulmonary disease) ICD Code: J44.9 - Chronic obstructive pulmonary disease, unspecified (4) Constipation ICD Code: K59.00 - Constipation, unspecified (5) Hyponatremia ICD Code: E87.1 - Hypo-osmolality and hyponatremia Status: Acute (6) Alcohol use ICD Code: Z78.9 - Other specified health status (7) Tobacco abuse ICD Code: Z72.0 - Tobacco use Assessment and Plan 72-year-old female with 1. Intractable Back Pain: c/o acute onset back pain, no injury/trauma, reports multiple allergies to Tylenol, Codeine and Hydrocodone. Continue Morphine prn, Valium prn for muscle spasm. Start Flexeril, Pamelor and Neurontin. Antiemetics as needed. 2. Lumbar CxFx: c/o acute, severe back pain. H/o Thoracic CxFx years ago from previous trauma. L-Spine X-ray w/ mild compression deformity of L5 inferior endplate of unknown chronicity. Appreciate input from neurosurgery and continue with nonoperative management. TLSO brace and PT consult. Analgesics/antiemetics as above. 3. COPD: Chronic Respiratory Failure, w/ Acute Exacerbation. Moderate. + wheezing/SOB on exam. Has been on Prednisone/Cipro x2 days. CXR w/ no acute infiltrate,. Solu-Medrol, DuoNeb, Symbicort, Mucinex. 4. Constipation: Continue Constipation Protocol 5. Hyponatremia: Continue IVF for hydration 6. Alcohol Use: Drinks 2-3 gins/day, start CIWA protocol for possible withdrawal symptoms, Seizure Precautions, MVT/Thiamine/Folate replacement. 7. Tobacco Abuse: h/o tobacco, reports quit in the past. NicoDerm prn if needed. 8. DVT Prophylaxis: SCD/Teds. Doni Sherwood MD Dec 27, 2017 11:43
[2017-12-27] MEDS ORDERED: PILL SPLITTER OTHER PRN (12:00)
[2017-12-27] MEDS: CYCLOBENZAPRINE HCL 10 MG TAB PO PRN (14:35)
--- NOTE | 2017-12-27 15:27 | HHI.NSPN ---
History Chief Complaint: back pain Interval History History of upper lumbar pain for 1 week. No radiation. History of T spine fractures Exam Results Vital Signs Date Time Temp Pulse Resp B/P (MAP) Pulse Ox O2 Delivery O2 Flow Rate FiO2 12/27/17 12:00 95.4 86 18 142/71 (94) 91 12/26/17 23:43 Nasal Cannula 5.00 Intake and Output 12/27/17 12/27/17 12/28/17 08:00 16:00 00:00 Intake Total 1337 ml Balance 1337 ml Physical Examination exam unchanged from previous Lab, Micro, Other Results CT of Tspine shows an acute fx of T8 No canal compromise CT of the lumbar spine shows degenerative changes Medical Decision Making Impression and Plan Imp: T8 compression fracture Recommend thoracic brace. No surgery necessary Herve Encinas MD Dec 27, 2017 15:27
[2017-12-27] MEDS ORDERED: ALUMINUM/MAGNESIUM/SIMETH 30 ML CUP PO PRN (17:15)
[2017-12-27] MEDS: ONDANSETRON HCL 4 MG/2 ML VIAL IVP PRN (20:16)
[2017-12-27] MEDS: LACTULOSE SYRUP 20 GM/30 ML CUP PO PRN (20:16)
[2017-12-27] MEDS: SENNOSIDES 8.6 MG TAB PO PRN ×2 (20:16→22:00)
[2017-12-27] MEDS: DIAZEPAM 10 MG TAB PO PRN (20:16)
[2017-12-27] MEDS: NORTRIPTYLINE HCL 10 MG CAP PO SCH (22:00)
[2017-12-28] VITALS (9 sets, daily range): BP systolic 111–155; BP diastolic 62–75; PULSE 73–97; RESP 16–18; TEMP 96.4–97.8; O2SAT 91–95
[2017-12-28] MEDS: CYCLOBENZAPRINE HCL 10 MG TAB PO PRN ×2 (00:26→10:08)
[2017-12-28] MEDS: SODIUM CHLOR 0.9% 1000 ML INJ 1,000 ML IV SCH ×4 (00:51→20:51)
[2017-12-28] MEDS: MORPHINE SULFATE 4 MG/ML INJ IV PUSH PRN ×3 (05:02→21:18)
[2017-12-28] MEDS: RESP: ALBUTEROL 2.5 MG/IPRATROPIUM 0.5 MG NEB (PRN) NEB (05:06)
[2017-12-28] MEDS: methylPREDNISolone SOD SUCC 40 MG/1 ML VIAL IV PUSH SCH ×4 (05:12→23:38)
[2017-12-28] MEDS: MAGNESIUM HYDROXIDE SUSP 30 ML CUP PO PRN ×2 (05:25→21:17)
[2017-12-28 07:46] LABS: BICARBONATE 29.5 MEQ/L (21.0-32.0); CALCIUM 9.2 MG/DL (8.5-10.1); CREATININE 0.42 MG/DL (0.50-1.00)
[2017-12-28] MEDS: SODIUM CHLORIDE 0.9% FLUSH 10 ML FLUSH IV FLUSH SCH ×2 (09:00→21:09)
[2017-12-28] MEDS: amLODIPine BESYLATE 5 MG TAB PO SCH (10:03)
[2017-12-28] MEDS: THIAMINE HCL 100 MG TAB PO SCH (10:03)
[2017-12-28] MEDS: MULTIVITAMINS/MINERALS THERAPEUTIC TAB PO SCH (10:03)
[2017-12-28] MEDS: FOLIC ACID 1 MG TAB PO SCH (10:04)
[2017-12-28] MEDS: BUDESONIDE-FORMOTEROL 80/4.5 MCG INHALER INH SCH ×2 (10:04→21:08)
[2017-12-28] MEDS: DOCUSATE SODIUM 50 MG/SENNA 8.6 MG TAB PO SCH ×2 (10:04→21:09)
--- NOTE | 2017-12-28 11:06 | HHI.PR ---
Subjective Remarks Follow up with Intractable back pain/Hyponatremia/ 12/27/17-patient seen and examined, back pain improving, Alert and oriented x 3. Na still low 12/28/17-patient seen and examined, sodium 130, patient seen on 5 L nasal cannula. Still with some back pain otherwise stable. States she will like to go home with [facility] Objective Vitals Vital Signs Date Time Temp Pulse Resp B/P (MAP) Pulse Ox O2 Delivery O2 Flow Rate FiO2 12/28/17 10:15 92 Nasal Cannula 4.00 Humidified 12/28/17 08:00 97.3 87 18 111/63 (79) 92 12/28/17 07:49 Nasal Cannula 5.00 Humidified 12/28/17 05:10 92 Nasal Cannula 5.00 12/28/17 04:00 96.4 97 17 141/75 (97) 91 12/28/17 00:00 97.5 84 16 140/64 (89) 91 12/27/17 20:00 97.2 94 17 140/75 (96) 90 12/27/17 17:55 93 Nasal Cannula 5.00 12/27/17 16:00 96.0 83 18 142/61 (88) 93 12/27/17 12:00 95.4 86 18 142/71 (94) 91 I/O 12/27/17 12/27/17 12/27/17 12/28/17 12/28/17 12/28/17 07:00 15:00 23:00 07:00 15:00 23:00 Intake Total 1337 ml 600 ml 1802 ml Output Total 880 ml Balance 1337 ml -880 ml 600 ml 1802 ml Intake Oral 100 ml 600 ml 360 ml IV Total 1237 ml 1442 ml Output Urine Total 880 ml # Voids 5 5 4 4 # Bowel Movements 0 Result Diagram: 12/27/17 0655 12/28/17 0557 Imaging Last Impressions Thoracic Spine CT 12/26/17 0000 Signed Impressions: Service Date/Time: Tuesday, December 26, 2017 19:28 - CONCLUSION: 1. Suspected acute compression fracture at the superior endplate of T8. There is a subtle fracture line visualized and there is approximately 50%% height loss centrally. 2. There is a mild height loss associated with the T5 vertebral body but no fracture line is identified suggesting that it may be chronic. Juaquin Newell MD Lumbar Spine X-Ray 12/26/17 0000 Signed Impressions: Service Date/Time: Tuesday, December 26, 2017 15:16 - CONCLUSION: 1. Mild compression deformity of the L5 inferior endplate of unknown chronicity given lack of prior exams. If patient has significant pain on palpation of the L5 spinous process, consider MRI examination to evaluate for bone marrow edema. 2. Degenerative spondylosis of the lower lumbar spine. Lyle Davis MD Lumbar Spine CT 12/26/17 0000 Signed Impressions: Service Date/Time: Tuesday, December 26, 2017 19:31 - CONCLUSION: 1. No acute lumbar spine abnormality is identified. No fracture is seen. No significant spinal canal stenosis is identified. There mild degenerative changes, as above. 2. Severe atherosclerotic disease. Juaquin Newell MD Chest X-Ray 12/26/17 0000 Signed Impressions: Service Date/Time: Tuesday, December 26, 2017 15:07 - CONCLUSION: 1. Cardiomegaly with slight positive fluid balance. Lyle Davis MD Abdomen X-Ray 12/26/17 0000 Signed Impressions: Service Date/Time: Tuesday, December 26, 2017 19:15 - CONCLUSION: 1. Mild diffuse gaseous distention of the small and large bowel. The pattern is not suggestive of obstruction but could represent ileus. 2. Severe atherosclerotic disease. Juaquin Newell MD Objective Remarks GENERAL: NAD SKIN: Warm and dry. HEAD: Normocephalic. EYES: No scleral icterus. No injection or drainage. NECK: Supple, trachea midline. No JVD or lymphadenopathy. CARDIOVASCULAR: Regular rate and rhythm without murmurs, gallops, or rubs. RESPIRATORY: Breath sounds equal bilaterally. No accessory muscle use. GASTROINTESTINAL: Abdomen soft, non-tender, nondistended. MUSCULOSKELETAL: No cyanosis, or edema. BACK: tender without obvious deformity. No CVA tenderness. Procedures None A/P Problem List: (1) Intractable pain ICD Code: R52 - Pain, unspecified (2) Lumbar compression fracture ICD Code: S32.000A - Wedge compression fracture of unspecified lumbar vertebra , initial encounter for closed fracture (3) COPD (chronic obstructive pulmonary disease) ICD Code: J44.9 - Chronic obstructive pulmonary disease, unspecified (4) Constipation ICD Code: K59.00 - Constipation, unspecified Status: Resolved (5) Hyponatremia ICD Code: E87.1 - Hypo-osmolality and hyponatremia Status: Resolved (6) Alcohol use ICD Code: Z78.9 - Other specified health status (7) Tobacco abuse ICD Code: Z72.0 - Tobacco use Assessment and Plan 72-year-old female with 1. Intractable Back Pain: c/o acute onset back pain, no injury/trauma, reports multiple allergies to Tylenol, Codeine and Hydrocodone. Continue Morphine prn, Valium prn for muscle spasm. Continue Flexeril, Pamelor and Neurontin. Antiemetics as needed. 2. Lumbar CxFx: c/o acute, severe back pain. H/o Thoracic CxFx years ago from previous trauma. L-Spine X-ray w/ mild compression deformity of L5 inferior endplate of unknown chronicity. Appreciate input from neurosurgery and continue with nonoperative management. TLSO brace and PT to eval. Analgesics/antiemetics as above. 3. COPD: Chronic Respiratory Failure, w/ Acute Exacerbation. Moderate. Solu -Medrol and will switch to PO prednisone, DuoNeb, Symbicort, Mucinex. 4. Constipation: Continue Constipation Protocol 5. Hyponatremia: Improve with IVF for hydration 6. Alcohol Use: Drinks 2-3 gins/day, start CIWA protocol for possible withdrawal symptoms, Seizure Precautions, MVT/Thiamine/Folate replacement. 7. Tobacco Abuse: h/o tobacco, reports quit in the past. NicoDerm prn if needed. 8. DVT Prophylaxis: SCD/Teds. Doni Sherwood MD Dec 28, 2017 11:06
--- NOTE | 2017-12-28 11:07 | HHI.FF ---
Face to Face Verification Diagnosis: (1) COPD with exacerbation (2) Intractable pain (3) Lumbar compression fracture (4) Tobacco abuse (5) Hyponatremia Physical Therapy Order: Evaluate and Treat Home Health Nursing Order: Signs/symptoms of disease process I have seen patient Gina Shaw on 12/28/17. My clinical findings support the need for the requested home health care services because: Ltd mobility - disease progression Deconditioned w/ increased weakness I certify that my clinical findings support that this patient is homebound because: Poor cardiac reserve Doni Sherwood MD Dec 28, 2017 11:07
[2017-12-28] MEDS ORDERED: Calcium Carbonate Chew CHEW (11:14)
[2017-12-28] MEDS ORDERED: AZIT250T3 PO (11:14)
[2017-12-28] MEDS ORDERED: Budeson-Formot 80-4.5 Mcg Inh INH (11:14)
[2017-12-28] MEDS ORDERED: IPRA17I INH (11:14)
[2017-12-28] MEDS ORDERED: PRED20 PO (11:14)
[2017-12-28] MEDS ORDERED: THIA100 PO (11:14)
[2017-12-28] MEDS ORDERED: VENTAER INH (11:14)
[2017-12-28] MEDS ORDERED: FOLI1TAB6 PO (11:14)
[2017-12-28] MEDS ORDERED: THERM PO (11:14)
--- NOTE | 2017-12-28 11:19 | HHI.DS ---
Discharge Summary Admission Date Dec 26, 2017 at 16:57 Discharge Date: Dec 28, 2017 Admitting Diagnosis Hyponatremia, L-spine compression fracture (1) Intractable pain ICD Code: R52 - Pain, unspecified (2) Lumbar compression fracture ICD Code: S32.000A - Wedge compression fracture of unspecified lumbar vertebra , initial encounter for closed fracture (3) COPD (chronic obstructive pulmonary disease) ICD Code: J44.9 - Chronic obstructive pulmonary disease, unspecified (4) Constipation ICD Code: K59.00 - Constipation, unspecified Status: Resolved (5) Hyponatremia ICD Code: E87.1 - Hypo-osmolality and hyponatremia Status: Resolved (6) Alcohol use ICD Code: Z78.9 - Other specified health status (7) Tobacco abuse ICD Code: Z72.0 - Tobacco use Procedures None Brief History - From Admission This is a 72-year-old female with a PMH of HTN, COPD and h/o Tobacco Abuse who presented to the ER w/ various complaints including back pain, SOB/wheezing and constipation. States back pain has been ongoing for approx 1wk, denies injury/ trauma. Reports h/o T-Spine Fx several years ago after lifting a patient while working as a [employer]. Has been taking Ibuprofen at home with no relief. Reports pain is severe, constant, sharp, 10/10, non-radiating. SOB started 4 days ago, thought she was having a COPD exacerbation so she started taking Prednisone and Cipro that she had at home, has been on treatment since (2 days ago). SOB is moderate, associated w/ wheezing, no cough. Denies fever, chills. Also reports constipation x8 days. Has taken multiple over the counter medications w / minimal relief, today used a suppository and had small BM. Denies abdominal pain, nausea, vomiting or diarrhea. On arrival, BP 144/65, HR 78, O2 sat 95% on 2L. CBC essentially unremarkable, except for hemoglobin 11, previously 16.3 on 02/09/13. Na 123. K+ normal. CXR with cardiomegaly with slight positive fluid balance. Lumbar Spine x-ray with mild compression deformity of L5 of unknown chronicity. Dr. Encinas consulted by ER physician, recommendation for CT T/L-Spine. CBC/BMP: 12/27/17 0655 12/28/17 0557 Significant Findings Laboratory Tests Test 12/26/17 14:45 12/27/17 00:25 12/27/17 01:32 12/27/17 06:55 Hemoglobin 11.0 GM/DL (11.6-15.3) 9.7 GM/DL (11.6-15.3) Hematocrit 33.7 % (35.0-46.0) 30.9 % (35.0-46.0) Red Cell Distribution Width 18.3 % (11.6-17.2) 18.5 % (11.6-17.2) Neutrophils (%) (Auto) 77.8 % (16.0-70.0) 95.4 % (16.0-70.0) Monocytes (%) (Auto) 10.5 % (0.0-8.0) Monocytes # (Auto) 1.0 TH/MM3 (0-0.9) Creatinine 0.49 MG/DL (0.50-1.00) Sodium Level 123 MEQ/L (136-145) 124 MEQ/L (136-145) 124 MEQ/L (136-145) Chloride Level 87 MEQ/L (98-107) 91 MEQ/L (98-107) 90 MEQ/L (98-107) Urine Turbidity HAZY (CLEAR) Urine Protein 30 mg/dL (NEG-TRACE) Urine Leukocyte Esterase LARGE (NEG) Urine RBC 4 /hpf (0-3) Urine WBC 115 /hpf (0-5) Urine Bacteria MANY /hpf (NONE) Urine Mucus FEW /lpf (OCC) Calcium Level 8.1 MG/DL (8.5-10.1) Estimat Glomerular Filtration Rate 88 ML/MIN (>89) Red Blood Count 3.63 MIL/MM3 (4.00-5.30) Mean Corpuscular Hemoglobin 26.8 PG (27.0-34.0) Mean Corpuscular Hemoglobin Concent 31.5 % (32.0-36.0) Lymphocytes (%) (Auto) 3.3 % (9.0-44.0) Neutrophils # (Auto) 7.9 TH/MM3 (1.8-7.7) Lymphocytes # (Auto) 0.3 TH/MM3 (1.0-4.8) Random Glucose 119 MG/DL (74-106) Albumin 3.3 GM/DL (3.4-5.0) Test 12/28/17 05:57 Creatinine 0.42 MG/DL (0.50-1.00) Random Glucose 138 MG/DL (74-106) Sodium Level 130 MEQ/L (136-145) Chloride Level 94 MEQ/L (98-107) Imaging Last Impressions Thoracic Spine CT 12/26/17 0000 Signed Impressions: Service Date/Time: Tuesday, December 26, 2017 19:28 - CONCLUSION: 1. Suspected acute compression fracture at the superior endplate of T8. There is a subtle fracture line visualized and there is approximately 50%% height loss centrally. 2. There is a mild height loss associated with the T5 vertebral body but no fracture line is identified suggesting that it may be chronic. Juaquin Newell MD Lumbar Spine X-Ray 12/26/17 0000 Signed Impressions: Service Date/Time: Tuesday, December 26, 2017 15:16 - CONCLUSION: 1. Mild compression deformity of the L5 inferior endplate of unknown chronicity given lack of prior exams. If patient has significant pain on palpation of the L5 spinous process, consider MRI examination to evaluate for bone marrow edema. 2. Degenerative spondylosis of the lower lumbar spine. Lyle Davis MD Lumbar Spine CT 12/26/17 0000 Signed Impressions: Service Date/Time: Tuesday, December 26, 2017 19:31 - CONCLUSION: 1. No acute lumbar spine abnormality is identified. No fracture is seen. No significant spinal canal stenosis is identified. There mild degenerative changes, as above. 2. Severe atherosclerotic disease. Juaquin Newell MD Chest X-Ray 12/26/17 0000 Signed Impressions: Service Date/Time: Tuesday, December 26, 2017 15:07 - CONCLUSION: 1. Cardiomegaly with slight positive fluid balance. Lyle Davis MD Abdomen X-Ray 12/26/17 0000 Signed Impressions: Service Date/Time: Tuesday, December 26, 2017 19:15 - CONCLUSION: 1. Mild diffuse gaseous distention of the small and large bowel. The pattern is not suggestive of obstruction but could represent ileus. 2. Severe atherosclerotic disease. Juaquin Newell MD PE at Discharge GENERAL: NAD SKIN: Warm and dry. HEAD: Normocephalic. EYES: No scleral icterus. No injection or drainage. NECK: Supple, trachea midline. No JVD or lymphadenopathy. CARDIOVASCULAR: Regular rate and rhythm without murmurs, gallops, or rubs. RESPIRATORY: Breath sounds equal bilaterally. No accessory muscle use. GASTROINTESTINAL: Abdomen soft, non-tender, nondistended. MUSCULOSKELETAL: No cyanosis, or edema. BACK: tender without obvious deformity. No CVA tenderness. Hospital Course While in the hospital, patient was treated for: 1. Intractable Back Pain: c/o acute onset back pain, no injury/trauma, reports multiple allergies to Tylenol, Codeine and Hydrocodone. Treated with Morphine prn, Valium prn for muscle spasm. Treated with Flexeril, Pamelor and Neurontin. Antiemetics as needed. 2. Lumbar CxFx: c/o acute, severe back pain. H/o Thoracic CxFx years ago from previous trauma. L-Spine X-ray w/ mild compression deformity of L5 inferior endplate of unknown chronicity. Appreciate input from neurosurgery and continue with nonoperative management. TLSO brace and PT to eval. Analgesics/antiemetics as above. 3. COPD: Chronic Respiratory Failure, w/ Acute Exacerbation. Moderate. Treated with Solu-Medrol and switched to PO prednisone, DuoNeb, Symbicort, Mucinex. 4. Constipation: Resolved with Constipation Protocol 5. Hyponatremia: Improved with IVF for hydration 6. Alcohol Use: Drinks 2-3 gins/day, start CIWA protocol for possible withdrawal symptoms, Seizure Precautions, MVT/Thiamine/Folate replacement. 7. Tobacco Abuse: h/o tobacco, reports quit in the past. NicoDerm prn if needed. 8. DVT Prophylaxis: SCD/Teds. Pt Condition on Discharge: Good Discharge Disposition: Disch w/ Home Health Serv Discharge Time: > 30 minutes Discharge Instructions DIET: Follow Instructions for: Heart Healthy Diet Activities you can perform: Weight Bearing as Kristine Follow up Referrals: PCP Follow-up - 1 Week New Medications: Albuterol 18 GM Inh (Ventolin Hfa 18 GM Inh) 90 Mcg/Act Aer 2 PUFF INH Q4-6H PRN for SHORTNESS OF BREATH, #1 INHALER 3 Refills Azithromycin (Azithromycin) 250 Mg Tab 250 MG PO DIRECTED for Infection, #6 TAB 0 Refills Take 2 tabs (500 mg) on day 1 then 1 tab daily x 4 days. Ipratropium HFA 12.9 GM Inh (Atrovent HFA 12.9 GM Inh) 17 Mcg/Actuation Aer 2 PUFF INH Q6HR PRN for SHORTNESS OF BREATH, #1 INHALER 3 Refills Prednisone (Prednisone) 20 Mg Tab 20 MG PO DIRECTED for Inflammation, #11 TAB 0 Refills 40 MG twice a day x 3 days, then 20 MG daily x 3 days, then 10 MG daily x 3 days Pulse Oximeter (Pulse Oximeter) 1 Mis Mis EA .XX DIRECTED, #1 Cyclobenzaprine (Flexeril) 10 Mg Tab 5 MG PO Q8H PRN for spasm, #30 TAB Folic Acid (Folic Acid) 1 Mg Tablet 1 MG PO DAILY for Alcohol Detox, #30 MG Multiple Vitamins W/ Minerals (Thera M Plus) 1 Tab 1 TAB PO DAILY for Alcohol Detox, #30 TAB Nortriptyline (Nortriptyline) 10 Mg Cap 10 MG PO HS for Pain Management, #30 CAP Thiamine HCl (Gnp Vitamin B-1) 100 Mg Tab 100 MG PO DAILY for Alcohol Detox, #30 TAB [Budeson-Formot 80-4.5 Mcg Inh] () 60 PUFF AERO 2 PUFF INH BID for Breathing Treatment, #1 3 Refills [Calcium Carbonate Chew] () 500 MG CHEW 500 MG CHEW Q6H PRN for DYSPEPSIA OR HEARTBURN, #40 Continued Medications: Amlodipine (Amlodipine) 5 Mg Tab 5 MG PO DAILY for Blood Pressure Management, #30 TAB 0 Refills Discontinued Medications: Budesonide-Formoterol Inh (Symbicort Inh) 80-4.5 Mcg/Act Aero 2 PUFF INH BID for Asthma Management, #1 INHALER 0 Refills Doni Sherwood MD Dec 28, 2017 11:19
[2017-12-28] MEDS ORDERED: PULSE OXIMETER1 MI1 (11:20)
[2017-12-28] MEDS: SODIUM CHLORIDE 0.9% FLUSH 10 ML FLUSH IV FLUSH PRN ×3 (12:22→23:38)
[2017-12-28] MEDS: DIAZEPAM 10 MG TAB PO PRN (12:25)
[2017-12-28] MEDS ORDERED: OXYGENDME NAS.CANULA (12:30)
[2017-12-28] MEDS: LACTULOSE SYRUP 20 GM/30 ML CUP PO PRN ×2 (13:24→21:17)
--- NOTE | 2017-12-28 16:26 | HHI.NSPN ---
History Chief Complaint: back pain Interval History 12/28/17: Pt complains of mid back pain. She denies any radiculopathy into the ribs and states it was when she came in but not now. She is sitting up in a chair with TLSO brace on. No radiculopathy or weakness in LEs. No paresthesias in LEs. Review of Systems General: Negative for: fever, chills, insomnia Respiratory: Negative for: shortness of breath, cough, sputum Cardiovascular: Negative for: chest pain Gastrointestinal: Negative for: nausea, vomitting, diarrhea, constipation Exam Results Vital Signs Date Time Temp Pulse Resp B/P (MAP) Pulse Ox O2 Delivery O2 Flow Rate FiO2 12/28/17 13:25 93 Nasal Cannula 4.00 Humidified 12/28/17 12:00 97.8 87 18 148/74 (98) Intake and Output 12/28/17 12/28/17 12/29/17 08:00 16:00 00:00 Intake Total 857 ml 720 ml Balance 857 ml 720 ml Physical Examination General: Pt sitting up in chair in NAD. Resp: CTA bilaterally. She is on O2 via NC. Heart: NSR no murmurs Abd: Soft positive bs Skin: No cyanosis or erythema. Left lower leg with mild edema which she states she has had since Jul 2017 and had a Doppler which was neg. Muscle: Moves LEs with good strength. Neuro: Pt awake alert. Sitting up in chair. Follows commands well. Speech clear and appropriate. Sensation intact. Lab, Micro, Other Results Last Impressions Thoracic Spine CT 12/26/17 0000 Signed Impressions: Service Date/Time: Tuesday, December 26, 2017 19:28 - CONCLUSION: 1. Suspected acute compression fracture at the superior endplate of T8. There is a subtle fracture line visualized and there is approximately 50%% height loss centrally. 2. There is a mild height loss associated with the T5 vertebral body but no fracture line is identified suggesting that it may be chronic. Juaquin Newell MD Lumbar Spine X-Ray 12/26/17 0000 Signed Impressions: Service Date/Time: Tuesday, December 26, 2017 15:16 - CONCLUSION: 1. Mild compression deformity of the L5 inferior endplate of unknown chronicity given lack of prior exams. If patient has significant pain on palpation of the L5 spinous process, consider MRI examination to evaluate for bone marrow edema. 2. Degenerative spondylosis of the lower lumbar spine. Lyle Davis MD Lumbar Spine CT 12/26/17 0000 Signed Impressions: Service Date/Time: Tuesday, December 26, 2017 19:31 - CONCLUSION: 1. No acute lumbar spine abnormality is identified. No fracture is seen. No significant spinal canal stenosis is identified. There mild degenerative changes, as above. 2. Severe atherosclerotic disease. Juaquin Newell MD Chest X-Ray 12/26/17 0000 Signed Impressions: Service Date/Time: Tuesday, December 26, 2017 15:07 - CONCLUSION: 1. Cardiomegaly with slight positive fluid balance. Lyle Davis MD Abdomen X-Ray 12/26/17 0000 Signed Impressions: Service Date/Time: Tuesday, December 26, 2017 19:15 - CONCLUSION: 1. Mild diffuse gaseous distention of the small and large bowel. The pattern is not suggestive of obstruction but could represent ileus. 2. Severe atherosclerotic disease. Juaquin Newell MD Laboratory Tests Test 12/28/17 05:57 Blood Urea Nitrogen 10 MG/DL Creatinine 0.42 MG/DL Random Glucose 138 MG/DL Calcium Level 9.2 MG/DL Sodium Level 130 MEQ/L Potassium Level 4.5 MEQ/L Chloride Level 94 MEQ/L Carbon Dioxide Level 29.5 MEQ/L Anion Gap 7 MEQ/L Estimat Glomerular Filtration Rate 148 ML/MIN 12/28/17 12/28/17 12/29/17 15:00 23:00 07:00 Intake Total 720 ml Balance 720 ml IV Total 720 ml Medical Decision Making Impression and Plan A: 72 y/o FM with T8 fracture. P: Continue with LSO with thoracic extension. Pt states pain improved with the brace. continue to ambulate with walker. Pt being discharged by medical service. Discussed with pt follow up in 6 weeks with Follow up x-rays prior to visit. Doni Duncan Dec 28, 2017 4:26 pm
[2017-12-28] MEDS ORDERED: WALKER/ADULT/FO1 MIS (17:56)
[2017-12-28] MEDS: NORTRIPTYLINE HCL 10 MG CAP PO SCH (21:09)
[2017-12-28] MEDS: SENNOSIDES 8.6 MG TAB PO PRN (21:17)
[2017-12-29] MEDS: RESP: ALBUTEROL 2.5 MG/IPRATROPIUM 0.5 MG NEB (PRN) NEB (04:37)
[2017-12-29] MEDS: CYCLOBENZAPRINE HCL 10 MG TAB PO PRN ×2 (04:56→08:46)
[2017-12-29] MEDS: methylPREDNISolone SOD SUCC 40 MG/1 ML VIAL IV PUSH SCH ×2 (05:00→13:28)
[2017-12-29] MEDS: SODIUM CHLORIDE 0.9% FLUSH 10 ML FLUSH IV FLUSH PRN (05:00)
[2017-12-29] MEDS: SODIUM CHLOR 0.9% 1000 ML INJ 1,000 ML IV SCH ×2 (05:04→06:55)
[2017-12-29 07:56] VITALS: BP 159/74; PULSE 83; RESP 19; TEMP 97.1; O2SAT 90
[2017-12-29] MEDS: MULTIVITAMINS/MINERALS THERAPEUTIC TAB PO SCH (08:46)
[2017-12-29] MEDS: FOLIC ACID 1 MG TAB PO SCH (08:46)
[2017-12-29] MEDS: THIAMINE HCL 100 MG TAB PO SCH (08:46)
[2017-12-29] MEDS: DOCUSATE SODIUM 50 MG/SENNA 8.6 MG TAB PO SCH ×2 (08:47→08:51)
[2017-12-29] MEDS: BUDESONIDE-FORMOTEROL 80/4.5 MCG INHALER INH SCH (08:47)
[2017-12-29] MEDS: SODIUM CHLORIDE 0.9% FLUSH 10 ML FLUSH IV FLUSH SCH (08:47)
[2017-12-29] MEDS: amLODIPine BESYLATE 5 MG TAB PO SCH (08:47)
[2017-12-29] MEDS ORDERED: OXYGENDME NAS.CANULA (10:00)
[2017-12-29] MEDS ORDERED: PULSE OXIMETER1 MI1 (10:00)
[2017-12-29 10:20] VITALS: O2SAT 94
[2017-12-29 11:38] VITALS: BP 161/76; PULSE 80; RESP 17; TEMP 96.6; O2SAT 91
--- NOTE | 2017-12-29 13:26 | HHI.NSPN ---
History Chief Complaint: back pain Interval History 12/28/17: Pt complains of mid back pain. She denies any radiculopathy into the ribs and states it was when she came in but not now. She is sitting up in a chair with TLSO brace on. No radiculopathy or weakness in LEs. No paresthesias in LEs. 12/29/17: Pt complains of mid back pain. She denies any radiculopathy. She was going to be discharged home yesterday but is on O2 and medicine is trying to coordinate this outpatient and also had not had a BM for several days per pt. She denies any weakness in the LEs. She states she is wearing her brace. Review of Systems General: Negative for: fever, chills, insomnia Respiratory: Negative for: shortness of breath, cough, sputum Cardiovascular: Negative for: chest pain Gastrointestinal: Positive for: constipation, Negative for: nausea, vomitting, diarrhea Exam Results Vital Signs Date Time Temp Pulse Resp B/P (MAP) Pulse Ox O2 Delivery O2 Flow Rate FiO2 12/29/17 11:38 96.6 80 17 161/76 (104) 91 12/29/17 10:20 Nasal Cannula 4.00 Intake and Output 12/29/17 12/29/17 12/30/17 08:00 16:00 00:00 Intake Total 852 ml Balance 852 ml Physical Examination General: Pt is resting in bed in NAD. Eyes: Pupils equal. Sclera anicteric. Resp: CTA bilaterally. She is on O2 via NC. Heart: NSR 2/6 systolic ejection murmur. Abd: Distended but soft positive bs Skin: No cyanosis or erythema. Left lower leg with mild edema which she states she has had since Jul 2017 and had a Doppler which was neg. Muscle: Moves LEs with good strength. Neuro: Pt awake alert. Resting in bed. Follows commands well. Speech clear and appropriate. Sensation intact. Lab, Micro, Other Results Last Impressions Thoracic Spine CT 12/26/17 0000 Signed Impressions: Service Date/Time: Tuesday, December 26, 2017 19:28 - CONCLUSION: 1. Suspected acute compression fracture at the superior endplate of T8. There is a subtle fracture line visualized and there is approximately 50%% height loss centrally. 2. There is a mild height loss associated with the T5 vertebral body but no fracture line is identified suggesting that it may be chronic. Juaquin Newell MD Lumbar Spine X-Ray 12/26/17 0000 Signed Impressions: Service Date/Time: Tuesday, December 26, 2017 15:16 - CONCLUSION: 1. Mild compression deformity of the L5 inferior endplate of unknown chronicity given lack of prior exams. If patient has significant pain on palpation of the L5 spinous process, consider MRI examination to evaluate for bone marrow edema. 2. Degenerative spondylosis of the lower lumbar spine. Lyle Davis MD Lumbar Spine CT 12/26/17 0000 Signed Impressions: Service Date/Time: Tuesday, December 26, 2017 19:31 - CONCLUSION: 1. No acute lumbar spine abnormality is identified. No fracture is seen. No significant spinal canal stenosis is identified. There mild degenerative changes, as above. 2. Severe atherosclerotic disease. Juaquin Newell MD Chest X-Ray 12/26/17 0000 Signed Impressions: Service Date/Time: Tuesday, December 26, 2017 15:07 - CONCLUSION: 1. Cardiomegaly with slight positive fluid balance. Lyle Davis MD Abdomen X-Ray 12/26/17 0000 Signed Impressions: Service Date/Time: Tuesday, December 26, 2017 19:15 - CONCLUSION: 1. Mild diffuse gaseous distention of the small and large bowel. The pattern is not suggestive of obstruction but could represent ileus. 2. Severe atherosclerotic disease. Juaquin Newell MD Medical Decision Making Impression and Plan A: 72 y/o FM with T8 fracture. P: Continue with LSO with thoracic extension. Pt states pain improved with the brace. continue to ambulate with walker. Pt being discharged by medical service. Discussed with pt follow up in 6 weeks with Follow up x-rays prior to visit. Doni Duncan Dec 29, 2017 1:26 pm
[2017-12-29] MEDS ORDERED: NORT10CA PO (15:54)
[2017-12-29] MEDS ORDERED: CYCL10TA PO (15:54)
[2017-12-29] MEDS ORDERED: VENTAER INH (15:54)
[2017-12-29] MEDS ORDERED: IPRA17I INH (15:54)
[2017-12-30] MEDS ORDERED: WALKER WHEELS/F1 MIS (12:14)
== END 2017-12-29 19:11 | disposition home health service (06) | DRG 542 ==
LOC: NEPD 14:14 → NEDA 16:57 → N06B 20:05
PROVIDERS: ADMIT Hospitalist; ATTEND Hospitalist
DX: M48.54XA Collapsed vertebra, not elsewhere classified, thoracic region, initial encounter for fracture (principal); J96.20 Acute and chronic respiratory failure, unspecified whether with hypoxia or hypercapnia; J44.1 Chronic obstructive pulmonary disease with (acute) exacerbation; E87.1 Hypo-osmolality and hyponatremia; I10 Essential (primary) hypertension; K59.00 Constipation, unspecified; M48.56XA Collapsed vertebra, not elsewhere classified, lumbar region, initial encounter for fracture; Z23 Encounter for immunization; Z87.891 Personal history of nicotine dependence
CPT/HCPCS: 71046; 72100; 72128; 72131; 74019; 80048; 80053; 81001; 82948; 85025; 87077; 87086; 87186; 90471; 90686; 94618; 94640; 94664; 96374; 96375; G0008; J1885; J2270; J2405; J2920; J7030; L0200; L0484; Q2038